=== PATIENT | female | born 1995 | race Caucasian/White ===

== ENCOUNTER 2017-06-24 11:24 | Emergency (ER) | payer MEDICAID ==
[~2017-06-24] VITALS: Ht 170.2 cm; Wt 91.0 kg
[2017-06-24] MEDS ORDERED: AMOX-422 PO (13:12)
[2017-06-24 13:26] VITALS: BP 134/84
== END 2017-06-24 13:25 | disposition home or self-care (01) ==
LOC: ER 11:24
DX: O99.512 Diseases of the respiratory system complicating pregnancy, second trimester (principal); J20.9 Acute bronchitis, unspecified; J02.9 Acute pharyngitis, unspecified; O26.892 Other specified pregnancy related conditions, second trimester; J01.00 Acute maxillary sinusitis, unspecified; Z87.891 Personal history of nicotine dependence; Z3A.25 25 weeks gestation of pregnancy
CPT/HCPCS: 99283

== ENCOUNTER 2018-12-11 12:15 | Emergency (ER) | payer MEDICAID, OTHER ==
[~2018-12-11] VITALS: Ht 170.2 cm; Wt 88.2 kg
[2018-12-11] MEDS ORDERED: diphenhydrAMINE 25mg capsule PO ONE (12:55)
[2018-12-11] MEDS ORDERED: amox tr/potassium clavulanate 875/125mg TAB PO ONE (12:55)
[2018-12-11] MEDS ORDERED: DIPH25CA83 PO (12:58)
[2018-12-11] MEDS ORDERED: OXYM15MI9 NS (12:58)
[2018-12-11] MEDS ORDERED: CETI-102 PO (12:58)
[2018-12-11] MEDS ORDERED: AMOX-422 PO (12:58)
[2018-12-11 13:17] VITALS: BP 129/74
[2018-12-12] MEDS ORDERED: ALBU8.5H8 INH (06:09)
[2018-12-12] MEDS ORDERED: PRED20TA PO (06:09)
== END 2018-12-11 13:10 | disposition home or self-care (01) ==
LOC: ER 12:16
DX: J32.0 Chronic maxillary sinusitis (principal); Z88.1 Allergy status to other antibiotic agents; Z79.899 Other long term (current) drug therapy
CPT/HCPCS: 99283; Q0163

== ENCOUNTER 2018-12-12 03:32 | Emergency (ER) | payer MEDICAID, OTHER ==
[~2018-12-12] VITALS: Ht 170.2 cm; Wt 88.2 kg
[~2018-12-12 03:32] MED LIST: AMOX-422 PO; CETI-102 PO; DIPH25CA83 PO; OXYM15MI9 NS
[2018-12-12] MEDS ORDERED: ipratropium/albuterol 3ml nebule NEB ONE ×2 (03:55→06:15)
[2018-12-12 04:36] LABS: BASOPHILS % (AUTO) 0.4 % (0-1); EOSINOPHILS # (AUTO) 0.6 X10'3 (0-0.9); EOSINOPHILS % (AUTO) 5.8 % (0-6); HEMATOCRIT 40.6 % (35.0-45.0); HEMOGLOBIN 13.8 g/dl (12.0-16.0); LYMPHOCYTES # (AUTO) 2.6 X10'3 (1.1-4.8); MEAN CORPUSCULAR HEMOGLOBIN 30.9 PG (27.0-31.0); MEAN CORPUSCULAR VOLUME 90.7 FL (78-98); MEAN PLATELET VOLUME 10.7 FL (7.4-10.4); MONOCYTES # (AUTO) 0.8 X10'3 (0-0.9); MONOCYTES % (AUTO) 8.1 % (2-12); NEUTROPHILS # (AUTO) 6.1 X10'3 (1.8-7.7); NEUTROPHILS % (AUTO) 59.7 % (42-75); PLATELET COUNT 263 X10'3 (140-440); RED BLOOD COUNT 4.47 X10'6 (4.20-5.60); RED CELL DISTRIBUTION WIDTH 13.7 % (11.5-14.5); WHITE BLOOD COUNT 10.2 X10'3 (4.5-11.0)
[2018-12-12 04:51] LABS: ALANINE AMINOTRANSFERASE 22 U/L (12-78); ALBUMIN 3.3 G/DL (3.4-5.0); ALBUMIN/GLOBULIN RATIO 0.8 (1.1-1.5); ALKALINE PHOSPHATASE 72 IU/L (46-116); ANION GAP 9 (8-16); ASPARTATE AMINO TRANSFERASE 10 U/L (10-37); BILIRUBIN,TOTAL 0.2 MG/DL (0.1-1.0); BLOOD UREA NITROGEN 13 MG/DL (7-18); BUN/CREATININE RATIO 14.8 (6.6-38.0); CALCIUM 8.5 MG/DL (8.5-10.1); CHLORIDE 107 MMOL/L (99-107); CREATININE 0.88 MG/DL (0.40-0.90); GLUCOSE 126 MG/DL (70-104); POTASSIUM 4.1 MMOL/L (3.5-5.1); SODIUM 142 MMOL/L (135-145); TOTAL CARBON DIOXIDE 25.6 MMOL/L (24-32); TOTAL PROTEIN 7.7 G/DL (6.4-8.2); eGFR 78 ML/MIN
[2018-12-12 05:24] LABS: D-DIMER 1.07 MG/L FEU (0-0.50)
[2018-12-12 05:26] VITALS: BP 126/78
[2018-12-12 05:26] LABS: PARTIAL THROMBOPLASTIN TIME 27 SECONDS (22-32)
[2018-12-12] MEDS ORDERED: iohexol 350MG/ML 100ml bottle IV ONE (05:34)
[2018-12-12] MEDS ORDERED: predniSONE 20 mg tablet PO ONE (06:05)
[2018-12-12] MEDS ORDERED: ALBU8.5H8 INH (06:09)
[2018-12-12] MEDS ORDERED: PRED20TA PO (06:09)
--- NOTE | 2018-12-12 06:30 | NUR ---
PT CURRENTLY RECEIVING SECOND BREATHING TX
== END 2018-12-12 07:02 | disposition home or self-care (01) ==
LOC: ER 03:33
DX: J40 Bronchitis, not specified as acute or chronic (principal); J02.9 Acute pharyngitis, unspecified; Z88.1 Allergy status to other antibiotic agents; Z91.018 Allergy to other foods; Z79.899 Other long term (current) drug therapy; Z79.2 Long term (current) use of antibiotics
CPT/HCPCS: 71045; 71275; 80053; 85025; 85379; 85610; 85730; 93005; 94640; 94760; 99284; J7512; Q9967

== ENCOUNTER 2020-08-06 18:51 | Emergency (ER) | payer MEDICAID ==
[~2020-08-06] VITALS: Ht 167.6 cm; Wt 79.0 kg
[~2020-08-06 18:51] MED LIST changes: +ALBU8.5H8 INH; -AMOX-422 PO; -CETI-102 PO; +CETI-90 PO
[2020-08-06] MEDS ORDERED: proparacaine 0.5% ophthalmic drops 15ml RIGHTEYE ONE (20:30)
[2020-08-06] MEDS ORDERED: TETanus/Pertussis (Acell)/Diphther VAC/PF (Tdap-Adult) 0.5ml syringe IMVAC ONE (21:30)
[2020-08-06] MEDS ORDERED: ciprofloxacin 0.3% 2.5ml ophthalmic solution RIGHTEYE ONE (21:30)
[2020-08-06] MEDS ORDERED: HYDROcodone/acetaminophen 10/325mg tab PO ONE (21:30)
[2020-08-06] MEDS ORDERED: HYDR-3965 PO (21:41)
[2020-08-06 22:15] VITALS: BP 135/90
== END 2020-08-06 22:17 | disposition home or self-care (01) ==
LOC: ER 18:52
DX: S05.02XA Injury of conjunctiva and corneal abrasion without foreign body, left eye, initial encounter (principal); M79.651 Pain in right thigh; J45.909 Unspecified asthma, uncomplicated; F17.200 Nicotine dependence, unspecified, uncomplicated; F12.90 Cannabis use, unspecified, uncomplicated; Z20.3 Contact with and (suspected) exposure to rabies; Z98.890 Other specified postprocedural states; Z88.1 Allergy status to other antibiotic agents; Z79.899 Other long term (current) drug therapy; X58.XXXA Exposure to other specified factors, initial encounter; Y93.89 Activity, other specified; Y92.89 Other specified places as the place of occurrence of the external cause; Y99.8 Other external cause status
CPT/HCPCS: 90471; 90715; 99284

== ENCOUNTER 2023-04-02 21:30 | Inpatient (IN) | payer MEDICAID ==
[~2023-04-02] VITALS: Ht 170.2 cm; Wt 88.0 kg
[~2023-04-02 21:30] MED LIST changes: +ALBU8.5H17 INH; -ALBU8.5H8 INH
[2023-04-02 22:06] LABS: BILIRUBIN,URINE NEGATIVE (Neg); CLARITY,URINE SLIGHTLY CLOUDY (Clear); COLOR,URINE YELLOW (Yellow); GLUCOSE, URINE NEGATIVE (Neg); KETONES,URINE NEGATIVE (Neg); LEUKOCYTE ESTERASE ,URINE SMALL (Neg); NITRITES, URINE NEGATIVE (Neg); OCCULT BLOOD,URINE NEGATIVE (Neg); PROTEIN,URINE NEGATIVE (Neg); UROBILINOGEN,URINE 0.2 E.U/dL (0.2-1.0)
[2023-04-02 22:08] LABS: URINE HCG NEGATIVE (NEG)
[2023-04-02 22:14] LABS: UA COLLECTION TYPE CLN CATCH MIDSTREAM
[2023-04-02 22:16] LABS: BACTERIA,URINE 1+ /HPF (Neg); RENAL CELLS, URINE FEW /HPF; SQUAMOUS EPITHELIAL CELL,UR MODERATE /LPF (FEW); TRANSITIONAL EPI CELLS,URINE FEW /HPF; WBC,URINE 20-30 /HPF (0-4)
[2023-04-02 22:55] LABS: EOSINOPHILS # (AUTO) 0.5 X10'3 (0-0.9); EOSINOPHILS % (AUTO) 3.8 % (0-6); RED BLOOD COUNT 4.22 X10'6 (4.20-5.60)
[2023-04-02 22:56] LABS: BASOPHILS # (AUTO) 0.1 X10'3 (0-0.2); BASOPHILS % (AUTO) 0.6 % (0-1); HEMOGLOBIN 12.4 g/dl (12.0-16.0); LYMPHOCYTES # (AUTO) 3.6 X10'3 (1.1-4.8); LYMPHOCYTES % (AUTO) 27.4 % (21-51); MEAN CORPUSCULAR HEMOGLOBIN 29.3 PG (27.0-31.0); MEAN CORPUSCULAR HGB CONC 33.5 g/dL (33.0-36.5); MEAN CORPUSCULAR VOLUME 87.5 FL (78-98); MEAN PLATELET VOLUME 9.5 FL (7.4-10.4); MONOCYTES % (AUTO) 7.6 % (2-12); NEUTROPHILS # (AUTO) 7.9 X10'3 (1.8-7.7); NEUTROPHILS % (AUTO) 60.6 % (42-75); PLATELET COUNT 302 X10'3 (140-440); RED CELL DISTRIBUTION WIDTH 14.2 % (11.5-14.5); WHITE BLOOD COUNT 13.1 X10'3 (4.5-11.0)
[2023-04-02 23:07] LABS: ALANINE AMINOTRANSFERASE 45 U/L (12-78); ALBUMIN 3.6 G/DL (3.4-5.0); ALBUMIN/GLOBULIN RATIO 0.9 (1.1-1.5); ALKALINE PHOSPHATASE 91 IU/L (46-116); ANION GAP 7 (8-16); ASPARTATE AMINO TRANSFERASE 22 U/L (10-37); BILIRUBIN,TOTAL 0.2 MG/DL (0.1-1.0); BLOOD UREA NITROGEN 12 MG/DL (7-18); BUN/CREATININE RATIO 13.8 (10.0-20.0); CALCIUM 9.1 MG/DL (8.5-10.1); CHLORIDE 103 MMOL/L (99-107); CREATININE 0.87 MG/DL (0.40-0.90); GLUCOSE 98 MG/DL (70-104); LIPASE 21 U/L (16-77); POTASSIUM 4.1 MMOL/L (3.5-5.1); SODIUM 136 MMOL/L (135-145); TOTAL CARBON DIOXIDE 26.2 MMOL/L (24-32); TOTAL PROTEIN 7.8 G/DL (6.4-8.2); eCRCL 93 ML/MIN; eGFR 77 ML/MIN
[2023-04-03] VITALS (13 sets, daily range): BP systolic 128–154; BP diastolic 74–100; PULSE 65–104; RESP 13–26; TEMP 97.6; O2SAT 94–100
[2023-04-03] MEDS ORDERED: ondansetron/PF 4mg/2ml inj IV ONE ×2 (02:55→04:05)
[2023-04-03] MEDS ORDERED: HYDROmorphone 1 mg/ml syringe IV ONE ×2 (02:55→04:00)
[2023-04-03] MEDS ORDERED: piperacillin/tazo 4.5gm/100ml 100 ML IV STA (03:12)
[2023-04-03] MEDS ORDERED: HYDROcodone/acetaminophen 5mg/325mg tablet PO PRN ×2 (04:35→20:20)
[2023-04-03] MEDS ORDERED: morphine 2 MG/ML inj. syringe IV PRN (04:35)
[2023-04-03] MEDS ORDERED: magnesium 4gm in 100ml NS 100 ML IV PRN (04:35)
[2023-04-03] MEDS ORDERED: potassium Cl 40MEQ/1/2NS 520ml 520 ML IV PRN (04:35)
[2023-04-03] MEDS ORDERED: magnesium 2GM in 50ml NS 50 ML IV PRN (04:35)
[2023-04-03] MEDS ORDERED: HYDROcodone/acetaminophen 10/325mg tab PO PRN (04:35)
[2023-04-03] MEDS ORDERED: acetaminophen 325mg tablet PO PRN ×2 (04:35)
[2023-04-03] MEDS ORDERED: magnesium Cl slow-release 64mg tablet PO PRN (04:35)
[2023-04-03] MEDS ORDERED: potassium Cl 20 mEq SR tablet PO PRN ×2 (04:35)
[2023-04-03] MEDS: normal saline 1000ml 1,000 ML IV SCH ×2 (04:49→14:47)
[2023-04-03] MEDS: morphine 2 MG/ML inj. syringe IV PRN ×5 (05:34→21:13)
[2023-04-03] MEDS: pantoprazole 40mg Tablet.DR PO SCH (07:30)
[2023-04-03] MEDS: piperacillin/tazo 3.375gm/50ml 50 ML IV SCH ×2 (07:58→16:26)
[2023-04-03] MEDS: ondansetron/PF 4mg/2ml inj IV PRN (09:55)
[2023-04-03] MEDS ORDERED: NO HOME MEDS ×2 (12:06→12:07)
[2023-04-03] MEDS ORDERED: INDOCYANINE GREEN 25 MG/10 ML VIAL IV ONE (16:35)
[2023-04-03] MEDS ORDERED: sevoflurane 250ml liquid IH ONE (18:47)
[2023-04-03] MEDS ORDERED: LIDOcaine 2% (20mg/ml) 5ml vial ONE (18:47)
[2023-04-03] MEDS ORDERED: glycopyrrolate 0.2mg/ml inj ONE ×2 (18:47→19:56)
[2023-04-03] MEDS ORDERED: propofol inj 20 ML IV ONE (18:53)
[2023-04-03] MEDS ORDERED: rocuronium 10mg/ml inj IV ONE (18:53)
[2023-04-03] MEDS ORDERED: fentaNYL/PF 50MCG/1 ML 2ML syringe ONE (18:53)
[2023-04-03] MEDS ORDERED: midazolam 1 mg/ML 2ml injection ONE (18:53)
[2023-04-03] MEDS ORDERED: proCHLORperazine 10 MG/2 ml inj IV PRN (18:55)
[2023-04-03] MEDS ORDERED: ondansetron/PF 4mg/2ml inj IV PRN (18:55)
[2023-04-03] MEDS ORDERED: morphine 4 MG/ML inj SYRINge IV PRN (18:55)
[2023-04-03] MEDS ORDERED: ringers solution, lacted 1,000 ML IV SCH (18:55)
[2023-04-03] MEDS ORDERED: meperidine/PF 25mg/ml syringe IV PRN ×2 (18:55)
[2023-04-03] MEDS ORDERED: ceFAZolin 1000mg inj ONE ×2 (19:08)
[2023-04-03] MEDS ORDERED: LIDOcaine 1% 30ml preserv. free vial ONE (19:12)
[2023-04-03] MEDS ORDERED: BUPIVAcaine 2.5mg/ml inj 50ml vial (contains preservative) ONE (19:12)
[2023-04-03] MEDS ORDERED: BUPIVAcaine 2.5mg/ml inj 50ml vial (contains preservative) SQ ONE (19:28)
[2023-04-03] MEDS ORDERED: LIDOcaine 1% 30ml preserv. free vial SQ ONE (19:29)
[2023-04-03] MEDS ORDERED: dexamethasone sod phosphate 4mg/ml inj. ONE (19:52)
[2023-04-03] MEDS ORDERED: ondansetron/PF 4mg/2ml inj ONE (19:52)
[2023-04-03] MEDS ORDERED: neostigmine methylsulfate 1 MG/ML 10ml vial ONE (19:56)
[2023-04-03] MEDS: enoxaparin 40mg/0.4ml syringe SQ SCH (20:00)
[2023-04-03] MEDS ORDERED: naloxone 0.4 mg/ml inj IV PRN (20:20)
[2023-04-03] MEDS: meperidine/PF 25mg/ml syringe IV PRN ×2 (20:35→20:42)
[2023-04-03] MEDS: HYDROcodone/acetaminophen 10/325mg tab PO PRN (20:57)
[2023-04-03] MEDS ORDERED: temazepam 15mg capsule PO PRN (21:00)
[2023-04-04] VITALS (8 sets, daily range): BP systolic 105–148; BP diastolic 52–78; PULSE 70–84; RESP 16–18; TEMP 98.1–98.6; O2SAT 93–98
[2023-04-04] MEDS: piperacillin/tazo 3.375gm/50ml 50 ML IV SCH ×3 (00:57→16:12)
[2023-04-04] MEDS: HYDROcodone/acetaminophen 10/325mg tab PO PRN ×5 (01:02→20:13)
[2023-04-04] MEDS: ondansetron/PF 4mg/2ml inj IV PRN ×2 (01:06→14:54)
[2023-04-04 06:13] LABS: BASOPHILS % (AUTO) 0 % (0-1); EOSINOPHILS % (AUTO) 0 % (0-6); HEMATOCRIT 38.3 % (35.0-45.0); HEMOGLOBIN 12.5 g/dl (12.0-16.0); LYMPHOCYTES # (AUTO) 0.7 X10'3 (1.1-4.8); LYMPHOCYTES % (AUTO) 5.9 % (21-51); MEAN CORPUSCULAR HEMOGLOBIN 28.5 PG (27.0-31.0); MEAN CORPUSCULAR HGB CONC 32.6 g/dL (33.0-36.5); MEAN CORPUSCULAR VOLUME 87.5 FL (78-98); MEAN PLATELET VOLUME 10.3 FL (7.4-10.4); MONOCYTES # (AUTO) 0.2 X10'3 (0-0.9); MONOCYTES % (AUTO) 1.4 % (2-12); NEUTROPHILS # (AUTO) 10.6 X10'3 (1.8-7.7); NEUTROPHILS % (AUTO) 92.7 % (42-75); PLATELET COUNT 286 X10'3 (140-440); RED BLOOD COUNT 4.38 X10'6 (4.20-5.60); RED CELL DISTRIBUTION WIDTH 13.9 % (11.5-14.5); WHITE BLOOD COUNT 11.5 X10'3 (4.5-11.0)
[2023-04-04 06:23] LABS: ALANINE AMINOTRANSFERASE 576 U/L (12-78); ALBUMIN 3.2 G/DL (3.4-5.0); ALBUMIN/GLOBULIN RATIO 0.7 (1.1-1.5); ALKALINE PHOSPHATASE 148 IU/L (46-116); ANION GAP 10 (8-16); ASPARTATE AMINO TRANSFERASE 398 U/L (10-37); BILIRUBIN,TOTAL 1.9 MG/DL (0.1-1.0); BLOOD UREA NITROGEN 7 MG/DL (7-18); BUN/CREATININE RATIO 7.5 (10.0-20.0); CALCIUM 8.6 MG/DL (8.5-10.1); CHLORIDE 103 MMOL/L (99-107); CREATININE 0.93 MG/DL (0.40-0.90); GLUCOSE 113 MG/DL (70-104); POTASSIUM 4.3 MMOL/L (3.5-5.1); SODIUM 137 MMOL/L (135-145); TOTAL CARBON DIOXIDE 24.4 MMOL/L (24-32); TOTAL PROTEIN 7.5 G/DL (6.4-8.2); eCRCL 87 ML/MIN; eGFR 71 ML/MIN
[2023-04-04] MEDS: normal saline 1000ml 1,000 ML IV SCH ×3 (07:34→19:57)
[2023-04-04] MEDS: pantoprazole 40mg Tablet.DR PO SCH (09:50)
[2023-04-04] MEDS: morphine 2 MG/ML inj. syringe IV PRN ×3 (09:51→18:34)
[2023-04-04] MEDS: enoxaparin 40mg/0.4ml syringe SQ SCH (19:57)
[2023-04-05] MEDS: HYDROcodone/acetaminophen 10/325mg tab PO PRN ×4 (00:08→19:09)
[2023-04-05] MEDS: piperacillin/tazo 3.375gm/50ml 50 ML IV SCH ×2 (00:08→07:18)
[2023-04-05 01:00] VITALS: O2SAT 94
[2023-04-05 06:00] VITALS: BP 98/50; PULSE 69; RESP 17; TEMP 97.9; O2SAT 94
[2023-04-05 06:11] LABS: BASOPHILS # (AUTO) 0.1 X10'3 (0-0.2); BASOPHILS % (AUTO) 0.6 % (0-1); EOSINOPHILS # (AUTO) 0.2 X10'3 (0-0.9); EOSINOPHILS % (AUTO) 2.5 % (0-6); HEMOGLOBIN 10.7 g/dl (12.0-16.0); LYMPHOCYTES # (AUTO) 3.6 X10'3 (1.1-4.8); LYMPHOCYTES % (AUTO) 36.7 % (21-51); MEAN CORPUSCULAR HEMOGLOBIN 29.4 PG (27.0-31.0); MEAN CORPUSCULAR HGB CONC 33.5 g/dL (33.0-36.5); MEAN CORPUSCULAR VOLUME 87.9 FL (78-98); MEAN PLATELET VOLUME 10.1 FL (7.4-10.4); MONOCYTES # (AUTO) 0.7 X10'3 (0-0.9); MONOCYTES % (AUTO) 7.4 % (2-12); NEUTROPHILS # (AUTO) 5.2 X10'3 (1.8-7.7); NEUTROPHILS % (AUTO) 52.8 % (42-75); PLATELET COUNT 231 X10'3 (140-440); RED BLOOD COUNT 3.65 X10'6 (4.20-5.60); RED CELL DISTRIBUTION WIDTH 14.2 % (11.5-14.5); WHITE BLOOD COUNT 9.8 X10'3 (4.5-11.0)
[2023-04-05 06:20] LABS: ALANINE AMINOTRANSFERASE 370 U/L (12-78); ALBUMIN 2.5 G/DL (3.4-5.0); ALBUMIN/GLOBULIN RATIO 0.7 (1.1-1.5); ALKALINE PHOSPHATASE 115 IU/L (46-116); ANION GAP 6 (8-16); ASPARTATE AMINO TRANSFERASE 186 U/L (10-37); BLOOD UREA NITROGEN 7 MG/DL (7-18); BUN/CREATININE RATIO 7.4 (10.0-20.0); CALCIUM 7.9 MG/DL (8.5-10.1); CHLORIDE 106 MMOL/L (99-107); CREATININE 0.95 MG/DL (0.40-0.90); GLUCOSE 89 MG/DL (70-104); POTASSIUM 3.8 MMOL/L (3.5-5.1); SODIUM 140 MMOL/L (135-145); TOTAL CARBON DIOXIDE 27.9 MMOL/L (24-32); TOTAL PROTEIN 6.3 G/DL (6.4-8.2); eCRCL 85 ML/MIN; eGFR 70 ML/MIN
[2023-04-05] MEDS: normal saline 1000ml 1,000 ML IV SCH (06:59)
[2023-04-05] MEDS: pantoprazole 40mg Tablet.DR PO SCH (07:18)
[2023-04-05] MEDS: ondansetron/PF 4mg/2ml inj IV PRN ×2 (09:47→15:42)
[2023-04-05 10:00] VITALS: BP 108/63; PULSE 69; RESP 16; TEMP 97.8; O2SAT 95
[2023-04-05] MEDS ORDERED: FLU VACC QS2023-24(6MOS UP)/PF 60 MCG/0.5 ML SYRINGE IM ONE (10:00)
[2023-04-05] MEDS: morphine 2 MG/ML inj. syringe IV PRN (14:47)
[2023-04-05] MEDS ORDERED: PANT40TA54 PO (16:09)
[2023-04-05] MEDS ORDERED: CIPR-259 PO (16:09)
[2023-04-05] MEDS ORDERED: IBUP-1985 PO (16:09)
[2023-04-05] MEDS ORDERED: ACET-1008 PO (16:09)
[2023-04-05 19:09] VITALS: RESP 12
[2023-04-07 20:13] LABS: HBSAG SCREEN Negative (Negative); HEP B CORE AB, IGM Negative (Negative); HEP B CORE AB, TOT Negative (Negative)
== END 2023-04-05 19:30 | disposition home or self-care (01) | DRG 263 ==
LOC: ER 21:31 → ED HOLD 04-03 04:36 → ORTHO 4S 04-03 21:25
PROVIDERS: ADMIT Internal Medicine; ATTEND Internal Medicine
PROC: BF532Z0 Other Imaging of Gallbladder and Bile Ducts using Fluorescing Agent, Intraoperative (ICD-10-PCS; 2023-04-03)
PROC: 8E0W4CZ Robotic Assisted Procedure of Trunk Region, Percutaneous Endoscopic Approach (ICD-10-PCS; 2023-04-03)
PROC: 0FT44ZZ Resection of Gallbladder, Percutaneous Endoscopic Approach (ICD-10-PCS; principal; 2023-04-03 18:47)
DX: K80.00 Calculus of gallbladder with acute cholecystitis without obstruction (principal); K76.0 Fatty (change of) liver, not elsewhere classified; J45.909 Unspecified asthma, uncomplicated; N39.0 Urinary tract infection, site not specified; Z88.1 Allergy status to other antibiotic agents; Z91.018 Allergy to other foods; Z91.040 Latex allergy status; Z79.899 Other long term (current) drug therapy; Z87.891 Personal history of nicotine dependence
CPT/HCPCS: 36415; 76700; 80053; 81001; 81025; 83690; 84145; 85025; 86704; 86705; 87040; 87081; 87088; 87340; 90686; 99285; A4215; A4615; A4618; A7000; G0378; J0690; J1100; J1170; J1650; J2175; J2250; J2270; J2405; J2543; J2704; J2710; J3010; J3490; J7030; J7040; J7120

== ENCOUNTER 2024-03-23 06:12 | Emergency (ER) | payer MEDICAID ==
[~2024-03-23] VITALS: Ht 170.2 cm; Wt 97.0 kg
[~2024-03-23 06:12] MED LIST changes: -ALBU8.5H17 INH; -CETI-90 PO; -DIPH25CA83 PO; +IBUP-1985 PO; -OXYM15MI9 NS; +PANT40TA54 PO
[2024-03-23 06:14] VITALS: BP 117/84; PULSE 82; RESP 16; TEMP 97.5; O2SAT 99
[2024-03-23] MEDS ORDERED: AMOX-101 PO (06:57)
[2024-03-23] MEDS ORDERED: IBUP-1985 PO (06:57)
== END 2024-03-23 07:55 | disposition home or self-care (01) ==
LOC: ER 06:12
DX: K02.9 Dental caries, unspecified (principal); K08.89 Other specified disorders of teeth and supporting structures; J45.909 Unspecified asthma, uncomplicated; Z88.1 Allergy status to other antibiotic agents; Z91.040 Latex allergy status; Z79.899 Other long term (current) drug therapy
CPT/HCPCS: 99283